=== PATIENT | male | born 1945 | race Caucasian/White ===

== ENCOUNTER → 2021-01-05 | Outpatient (CLI) | payer MEDICARE, OTHER ==
[~2021-01-05] MED LIST: AMOCLA875 PO; CIPHYDOTSU OT; [UNRECOGNIZED DRUG - CODE] PO
== END | disposition home or self-care (01) ==
LOC: LAB SHORT 10:42 → LAB 10:42
DX: D48.5 Neoplasm of uncertain behavior of skin (principal)
CPT/HCPCS: 88305

== ENCOUNTER 2022-03-03 11:55 | Emergency (ER) | payer OTHER, MEDICARE ==
[~2022-03-03] VITALS: Ht 177.8 cm; Wt 81.7 kg
[2022-03-03 12:23] LABS: BASOPHILS ABSOLUTE AUTO 0.06 K/mm3 (0.00-0.23); BASOPHILS PERCENT AUTO 1 % (0-2); EOSINOPHILS ABSOLUTE AUTO 0.02 K/mm3 (0.00-0.68); EOSINOPHILS PERCENT AUTO 0 % (0-6); Hematocrit 43.6 % (37.0-53.0); Hemoglobin 14.6 g/dL (13.5-17.5); IMMATURE GRAN ABSOLUTE AUTO 0.12 K/mm3 (0.00-0.10); IMMATURE GRAN PERCENT AUTO 1 % (0-1); LYMPHOCYTES ABSOLUTE AUTO 2.93 K/mm3 (0.84-5.20); LYMPHOCYTES PERCENT AUTO 35 % (21-46); MONOCYTES ABSOLUTE AUTO 0.62 K/mm3 (0.16-1.47); MONOCYTES PERCENT AUTO 7 % (4-13); Mean Corpuscular HGB 31.6 pg (26.0-34.0); Mean Corpuscular HGB Conc 33.5 g/dL (31.5-36.5); Mean Corpuscular Volume 94 fL (80-100); Mean Platelet Volume 11.8 fL (9.1-12.4); NEUTROPHILS ABSOLUTE AUTO 4.75 K/mm3 (1.96-9.15); NEUTROPHILS PERCENT AUTO 56 % (41-73); Platelet Count 203 K/mm3 (150-400); RDW Coefficient Variation 13.2 % (11.7-14.2); RDW Standard Deviation 46.2 fL (35.1-46.3); Red Blood Cell Count 4.62 M/mm3 (4.30-5.90)
[2022-03-03 12:36] LABS: Albumin, Blood 3.8 g/dL (3.4-5.0); Albumin/Globulin Ratio 1.5 (0.8-1.8); Bilirubin, Total 0.9 mg/dL (0.1-1.0); Bun/Creatinine Ratio 16.4 (12.0-20.0); Creatinine, Blood 0.79 mg/dL (0.60-1.20); Globulin, Blood 2.5 g/dL (2.2-4.0); Potassium, Blood 4.3 mmol/L (3.5-5.5); Total Protein, Blood 6.3 g/dL (6.4-8.2)
[2022-03-03 12:37] LABS: International Normalized Ratio 1.02; Prothrombin Time Results 10.7 Sec (9.7-11.5)
== END 2022-03-03 14:47 | disposition short-term general hospital (02) ==
LOC: ER 11:55
PROVIDERS: Student in an Organized Health Care Education/Training Program
DX: S12.190A Other displaced fracture of second cervical vertebra, initial encounter for closed fracture (principal); S32.592A Other specified fracture of left pubis, initial encounter for closed fracture; S32.039A Unspecified fracture of third lumbar vertebra, initial encounter for closed fracture; S32.049A Unspecified fracture of fourth lumbar vertebra, initial encounter for closed fracture; S00.83XA Contusion of other part of head, initial encounter; S50.312A Abrasion of left elbow, initial encounter; S50.311A Abrasion of right elbow, initial encounter; R07.89 Other chest pain; R40.2410 Glasgow coma scale score 13-15, unspecified time; V43.52XA Car driver injured in collision with other type car in traffic accident, initial encounter
CPT/HCPCS: 70450; 71045; 71260; 72125; 72170; 73060; 74177; 80053; 85025; 85610; 93005; 93010; 96374-59; 96376-59; 99285-25; J1170; Q9967

== ENCOUNTER 2022-03-31 14:06 | Inpatient (IN) | payer OTHER, MEDICARE ==
[~2022-03-31] VITALS: Ht 182.9 cm; Wt 96.6 kg
[2022-03-31 14:34] LABS: BASOPHILS ABSOLUTE AUTO 0.03 K/mm3 (0.00-0.23); BASOPHILS PERCENT AUTO 0 % (0-2); EOSINOPHILS ABSOLUTE AUTO 0.01 K/mm3 (0.00-0.68); EOSINOPHILS PERCENT AUTO 0 % (0-6); Hematocrit 40.9 % (37.0-53.0); Hemoglobin 13.7 g/dL (13.5-17.5); IMMATURE GRAN ABSOLUTE AUTO 0.06 K/mm3 (0.00-0.10); IMMATURE GRAN PERCENT AUTO 1 % (0-1); LYMPHOCYTES ABSOLUTE AUTO 2.14 K/mm3 (0.84-5.20); LYMPHOCYTES PERCENT AUTO 20 % (21-46); MONOCYTES ABSOLUTE AUTO 1.49 K/mm3 (0.16-1.47); MONOCYTES PERCENT AUTO 14 % (4-13); Mean Corpuscular HGB 30.6 pg (26.0-34.0); Mean Corpuscular HGB Conc 33.5 g/dL (31.5-36.5); Mean Corpuscular Volume 91 fL (80-100); Mean Platelet Volume 12.4 fL (9.1-12.4); NEUTROPHILS ABSOLUTE AUTO 6.82 K/mm3 (1.96-9.15); NEUTROPHILS PERCENT AUTO 65 % (41-73); Platelet Count 231 K/mm3 (150-400); RDW Coefficient Variation 13.7 % (11.7-14.2); Red Blood Cell Count 4.48 M/mm3 (4.30-5.90); White Blood Cell Count 10.55 K/mm3 (4.00-11.30)
[2022-03-31 15:01] LABS: Albumin/Globulin Ratio 0.9 (0.8-1.8); Bun/Creatinine Ratio 18.8 (12.0-20.0); Creatinine, Blood 0.58 mg/dL (0.60-1.20); Globulin, Blood 3.4 g/dL (2.2-4.0); Magnesium, Blood 2.1 mg/dL (1.6-2.4); Potassium, Blood 3.7 mmol/L (3.5-5.5); Thyroid Stimulating Hormone 0.61 uIU/mL (0.360-4.800); Total Protein, Blood 6.4 g/dL (6.4-8.2)
[2022-03-31 15:54] LABS: Influenza A, PCR NEGATIVE (NEGATIVE); Influenza B, PCR NEGATIVE (NEGATIVE); Resp Syncytial Virus, PCR NEGATIVE (NEGATIVE); SARS-Cov-2 (COVID-19) PCR, MMC NEGATIVE (NEGATIVE)
[2022-03-31] MEDS ORDERED: BRILINTA90 M7 PO (15:55)
[2022-03-31] MEDS ORDERED: LIDOCAINE1 EACH TOP (15:55)
[2022-03-31] MEDS ORDERED: AMIT50 PO (15:55)
[2022-03-31] MEDS ORDERED: ASPI81CH PO (15:55)
[2022-03-31] MEDS ORDERED: NEURONTIN400 M9 PO ×2 (15:55→15:56)
[2022-03-31] MEDS ORDERED: Methocarbamol750 MG PO (15:56)
[2022-03-31] MEDS ORDERED: LOSARTAN POTASS25 M2 PO (15:56)
[2022-03-31] MEDS ORDERED: TAMSULOSIN HCL0.4 M1 PO (15:57)
[2022-03-31] MEDS ORDERED: ATORVASTATIN CA20 MG PO (15:57)
[2022-03-31] MEDS ORDERED: OXYCODONE-ACET1 EAC3 PO (15:57)
[2022-03-31] MEDS ORDERED: AMLODIPINE BESYL5 MG PO (15:57)
[2022-03-31] MEDS ORDERED: PRESERVISION L1 EAC1 PO (15:57)
[2022-03-31 18:57] LABS: Anti-Xa UFH, PHA Monitoring <0.10 IU/mL; International Normalized Ratio 1.13; Prothrombin Time Results 11.8 Sec (9.7-11.5)
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
[2022-04-01 02:09] LABS: BASOPHILS ABSOLUTE AUTO 0.03 K/mm3 (0.00-0.23); BASOPHILS PERCENT AUTO 0 % (0-2); EOSINOPHILS PERCENT AUTO 0 % (0-6); Hematocrit 36.5 % (37.0-53.0); Hemoglobin 12.3 g/dL (13.5-17.5); IMMATURE GRAN ABSOLUTE AUTO 0.03 K/mm3 (0.00-0.10); IMMATURE GRAN PERCENT AUTO 0 % (0-1); LYMPHOCYTES ABSOLUTE AUTO 1.94 K/mm3 (0.84-5.20); LYMPHOCYTES PERCENT AUTO 25 % (21-46); MONOCYTES ABSOLUTE AUTO 1.09 K/mm3 (0.16-1.47); MONOCYTES PERCENT AUTO 14 % (4-13); Mean Corpuscular HGB 30.4 pg (26.0-34.0); Mean Corpuscular HGB Conc 33.7 g/dL (31.5-36.5); Mean Corpuscular Volume 90 fL (80-100); NEUTROPHILS ABSOLUTE AUTO 4.76 K/mm3 (1.96-9.15); NEUTROPHILS PERCENT AUTO 61 % (41-73); Platelet Count 199 K/mm3 (150-400); RDW Coefficient Variation 13.5 % (11.7-14.2); RDW Standard Deviation 45.6 fL (35.1-46.3); Red Blood Cell Count 4.04 M/mm3 (4.30-5.90); White Blood Cell Count 7.85 K/mm3 (4.00-11.30)
[2022-04-01 02:28] LABS: Albumin, Blood 2.7 g/dL (3.4-5.0); Albumin/Globulin Ratio 0.9 (0.8-1.8); Bilirubin, Total 1.5 mg/dL (0.1-1.0); Bun/Creatinine Ratio 22.6 (12.0-20.0); Calcium, Blood 8.4 mg/dL (8.5-10.1); Creatinine, Blood 0.53 mg/dL (0.60-1.20); Potassium, Blood 3.5 mmol/L (3.5-5.5); Total Protein, Blood 5.7 g/dL (6.4-8.2)
--- NOTE | 2022-04-01 06:17 | NUR ---
SHIFT SUMMARY: PATIENT VS WNL AND DENIES CHEST PAIN OR SOB. PATIENT REPORTS FEELING "MUCH BETTER" THIS AM. PATIENT PLEASANT AND COOPERATIVE WITH CARE; USES CALL LIGHT APPROPRIATELY. MEDICATED PER EMAR. ADMISSION HX AND ASSESSMENT COMPLETE. MEDICATION HX COMPLETED TO BEST OF PATIENT'S RECOLLECTION - HE RECOMMENDS FOLLOWING UP WITH SPOUSE WHEN SHE COMES IN TODAY FOR ACCURACY. BED LOW AND CALL LIGHT IN REACH. WILL CONTINUE TO MONITOR AND REPORT TO ONCOMING RN.
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
--- NOTE | 2022-04-01 17:48 | NUR ---
SHIFT SUMMARY PATIENT NEURO REMAINS INTACT. NO ACUTE CHANGES THROUGHOUT THIS SHIFT. PATIENT AWARE OF PLAN AND MD MARTINSNG IN TO SEE PATIENT THIS AM AND DISCUSSED THE PLAN MOVING FORWARD WITH COAGULATION AND MEDICATIONS. VSS. CALL LIGHT WITHIN REACH AND BED IN LOWEST POSITION. WILL CONTINUE TO MONITOR AND PROVIDE CARE UNTIL HAND OFF WITH NEXT SHIFT.
[2022-04-02 04:26] LABS: Hematocrit 34.7 % (37.0-53.0); Hemoglobin 11.5 g/dL (13.5-17.5); Mean Corpuscular HGB 30.3 pg (26.0-34.0); Mean Corpuscular HGB Conc 33.1 g/dL (31.5-36.5); Mean Corpuscular Volume 92 fL (80-100); Platelet Count 219 K/mm3 (150-400); RDW Coefficient Variation 13.5 % (11.7-14.2); Red Blood Cell Count 3.79 M/mm3 (4.30-5.90); White Blood Cell Count 6.37 K/mm3 (4.00-11.30)
[2022-04-02 04:44] LABS: Albumin, Blood 2.5 g/dL (3.4-5.0); Anion Gap 6 mmol/L (6-16); Blood Urea Nitrogen 12 mg/dL (8-24); Bun/Creatinine Ratio 22.8 (12.0-20.0); CO2, Blood 26 mmol/L (21-32); Calcium, Blood 8.5 mg/dL (8.5-10.1); Chloride, Blood 108 mmol/L (98-108); Creatinine, Blood 0.53 mg/dL (0.60-1.20); Glomerular Filtration Rate 103 (60-); Glucose, Blood 97 mg/dL (70-99); Phosphorus, Blood 3.1 mg/dL (2.5-4.9); Potassium, Blood 3.2 mmol/L (3.5-5.5); Sodium, Blood 140 mmol/L (136-145)
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
--- NOTE | 2022-04-02 12:25 | NUR ---
UPDATE MD GUPTA IN TO SEE PATIENT. PLAN DISCUSSED WITH PATIENT AND PATIENTS . PLAN IS TO START ON ELIQUIS THIS EVENING AND STOP THE HEPARIN DRIP WHEN STARTING ELIQUIS. PLAN IS FOR POSSIBLE DC TOMORROW.
--- NOTE | 2022-04-02 17:14 | NUR ---
SHIFT SUMMARY PATIENT ISABEL REMAINS INTACT. VSS. TELE SR 93. PATIENT REPORTED PAIN OFF AND ON THROUGHOUT THE SHIFT AND WAS MEDICATED PER EMAR. PATIENT HEPARIN HAS BEEN DISCOUNTINUED AND STARTED ON ORAL XARELTO. NO ACUTE CHANGES THIS SHIFT. THIS RN TRIED TO GET THE PATIENT UP TO THE CHAIR AND TO WALK MULTIPLE TIMES THIS SHIFT. PATIENT REFUSED STATING HE JUST WANTED TO LAY IN BED. CALL LIGHT WITHIN REACH AND BED IN LOWEST POSITION. WILL CONTINUE TO MONITOR AND PROVIDE CARE UNTIL HAND OFF WITH NEXT SHIFT.
--- NOTE | 2022-04-03 06:25 | NUR ---
SHIFT SUMMARY PT IS ALERT AND ORIENTED X4. THERE HAVE BEEN NO ACUTE CHANGES T/O THE NIGHT. PT DENIES CHEST PAIN/PRESSURE OF SOB. VITALS ARE STABLE AND IS CURRENTLY ON ROOM AIR WITH SATS ABOVE 92%. ABLE TO USE URINAL IN BED BUT HAS SPILLED URINAL AND HAD A INCONT SMALL BM. PT VERY PAINFUL AND REPORTS PAIN AT TIMES TO BE 9-10/10 AND HAS BEEN MEDICATED PER EMAR. CALL LIGHT IS WITHIN REACH.
[2022-04-03] MEDS ORDERED: AMLO5 PO (11:27)
[2022-04-03] MEDS ORDERED: LOSA25 PO (11:28)
[2022-04-03] MEDS ORDERED: TAMS.4ER PO (11:49)
[2022-04-03] MEDS ORDERED: LIQUACEL PO (11:49)
[2022-04-03] MEDS ORDERED: ELIQUIS5 M2 PO ×2 (11:55→11:56)
[2022-04-03] MEDS ORDERED: MIRALAX17 GM PO (11:56)
--- NOTE | 2022-04-03 14:14 | NUR ---
Discharge Summary Pt alert, oriented x4, anxious at time. Pt reports pain t/o, medicated X1 per emar. Pt denies chest pain/pressure, sob, nasuea and dizziness. Pt refusing to get up in chair, edcuated pt on need for activity and movement. Pt reports unable to void, immediatly voids 175, bladder scan 814cc, had patient stand and reposition to void, 300, notified Dr Keene, no new orders. Other vss. No other acute changes noted. Educated and spouse on discharge instructions, follow up appointment and prescriptions. Educdated pt on importance of anticoagulents and activity. Prescriptions faxed to [facility], per spouses request. Pt left via wheelchair at approx 1355.
== END 2022-04-03 13:55 | disposition home or self-care (01) | DRG 176 ==
LOC: ER 14:06 → PCU 14:07
PROVIDERS: Internal Medicine; Student in an Organized Health Care Education/Training Program; ADMIT Internal Medicine
DX: I26.92 Saddle embolus of pulmonary artery without acute cor pulmonale (principal); N40.0 Benign prostatic hyperplasia without lower urinary tract symptoms; I25.10 Atherosclerotic heart disease of native coronary artery without angina pectoris; G62.9 Polyneuropathy, unspecified; E87.6 Hypokalemia; I27.20 Pulmonary hypertension, unspecified; I10 Essential (primary) hypertension; E78.00 Pure hypercholesterolemia, unspecified; Z20.822 Contact with and (suspected) exposure to COVID-19; Z79.2 Long term (current) use of antibiotics; Z79.899 Other long term (current) drug therapy; Z85.46 Personal history of malignant neoplasm of prostate; Z85.828 Personal history of other malignant neoplasm of skin; Z95.5 Presence of coronary angioplasty implant and graft; Z87.81 Personal history of (healed) traumatic fracture; Z79.82 Long term (current) use of aspirin; Z79.02 Long term (current) use of antithrombotics/antiplatelets; S32.039D Unspecified fracture of third lumbar vertebra, subsequent encounter for fracture with routine healing; S32.049D Unspecified fracture of fourth lumbar vertebra, subsequent encounter for fracture with routine healing; S12.100D Unspecified displaced fracture of second cervical vertebra, subsequent encounter for fracture with routine healing; S32.592D Other specified fracture of left pubis, subsequent encounter for fracture with routine healing
CPT/HCPCS: 0241U; 36415; 71046; 71260; 80053; 80069; 83735; 83880; 84443; 84484; 85025; 85027; 85379; 85520; 85610; 85730; 93005; 93010; 93306; 96365; 96365-59; 96366; 96375; 96375-59; 96376; 99285-25; A9270; G0378; J1170; J1644; J2270; J3010; J7030; Q9967